=== PATIENT | male | born 1960 | race Two or more races ===

== ENCOUNTER 2025-03-15 15:52 | Emergency (ER) | payer MEDICAID, SELFPAY ==
[2025-03-15 16:14] VITALS: BP 125/74; PULSE 92; RESP 20; TEMP 36.8; O2SAT 97; BMI 33.5
--- NOTE | 2025-03-15 16:25 | XR_ITS ---
Examination: CT abdomen and pelvis without contrast. Coronal 3-D reconstructions. Sagittal 2-D reconstructions. Date and time of exam: March 15, 2025, 1716 hours INDICATIONS: Hematuria today, patient is anticoagulated CTDI: vol (mGy): 13.2 DLP: (mGycm): 785 Technique: Axial images of the abdomen have been obtained, 3 mm slice thickness Intravenous contrast material has not been administered. Low dose protocols were performed. One or more of the following dose reduction techniques were used; automated exposure control, adjustment of the mA and/or KV according to patient size, use of iterative reconstruction technique. Findings: Air distended colon interposed between the liver and the hemidiaphragm No liver lesion No gallstones Spleen is not enlarged No pancreatic or adrenal mass Multiple subcentimeter bilateral renal calculi Significant right hydronephrosis, 10 mm mid right ureteral calculus No bowel obstruction Prostatomegaly, transverse dimension 5.4 cm Urinary bladder wall thickening up to 7 mm Large fat-containing right inguinal hernia No pericecal inflammatory change Advanced narrowing hip joints Severe osteopenia IMPRESSION: Colonic ileus Bilateral subcentimeter renal calculi Significant right hydronephrosis, 10 mm mid right ureteral calculus Moderate prostatomegaly Mild urinary bladder wall thickening, consider cystitis, outflow tract obstruction secondary to the prostatomegaly
--- NOTE | 2025-03-15 16:26 | PD.EDRME ---
Rapid Medical Screening Exam RME Arrival date/time: 03/15/25 15:52 64-year-old male presents to the emergency department today for complaints of hematuria patient on Eliquis Chief Complaint: General Adult/Misc Complain Vital signs: Vital Signs Temperature 98.2 F 03/15/25 16:14 Pulse Rate 92 03/15/25 16:14 Respiratory Rate 20 03/15/25 16:14 Blood Pressure 125/74 03/15/25 16:14 Pulse Oximetry (%) 97 03/15/25 16:14 Oxygen Delivery Method Room Air 03/15/25 16:14 Vital signs reviewed by provider: Yes Exam: On exam well-appearing does not appear appear ill or toxic in no acute distress Clinical Impression: Lab work and imaging ordered
[2025-03-15 18:07] LABS: Basophils # (Auto) 0.1 Thou/mm3 (0.0-0.2); Basophils % (Auto) 1 % (0-2.5); Eosinophils # (Auto) 0.4 Thou/mm3 (0.0-0.5); Eosinophils % (Auto) 5 % (0-10); Hematocrit 48.4 % (41.0-53.0); Hemoglobin 15.5 g/dL (13.5-16.0); Immature Granulocytes Auto 0.03 Thou/mm3 (0.00-0.00); Lymphocytes # (Auto) 2.0 Thou/mm3 (1.0-4.8); Lymphocytes % (Auto) 22 % (10-50); Mean Corpuscular HGB Conc 32.0 g/dl (31.0-37.0); Mean Corpuscular Hemoglobin 29.8 pg (25.0-35.0); Mean Corpuscular Volume 93 fL (80-100); Monocytes # (Auto) 1.0 Thou/mm3 (0.0-0.8); Monocytes % (Auto) 11 % (0-12); Neutrophils # (Auto) 5.4 Thou/mm3 (1.8-7.7); Neutrophils % (Auto) 61 % (37-80); Nucleated Red Blood Cell # 0.00 Thou/mm3 (0.00-0.00); Nucleated Red Blood Cell % 0 /100 WBC (0); Platelet Count 269 Thou/mm3 (140-440); RDW Standard Deviation 49.8 fL (35.1-43.9); Red Blood Count 5.21 Miln/mm3 (4.50-5.90); White Blood Count 8.8 Thou/mm3 (3.8-10.6)
[2025-03-15 18:38] LABS: INR 1.0 (0.9-1.3); Partial Thromboplastin Time 32.9 Seconds (22.0-36.0); Prothrombin Time 10.4 Seconds (9.0-12.2)
[2025-03-15 18:40] LABS: Alanine Aminotransferase 9 U/L (10-49); Albumin, Serum 4.9 gm/dL (3.4-4.8); Albumin/Globulin Ratio 1.5 (1.2-2.2); Alkaline Phosphatase 95 U/L (46-116); Anion Gap 13 (7-16); Aspartate Amino Transferase 10 U/L (0-34); BUN/Creatinine Ratio 12 Ratio (12-20); Bilirubin,Total 0.2 mg/dL (0.3-1.2); Blood Urea Nitrogen 12 mg/dL (9-23); Calcium 10.1 mg/dL (8.3-10.6); Calcium (Corrected) 10.1 mg/dL (8.5-10.1); Carbon Dioxide 21.6 mMol/L (20.0-31.0); Chloride 105 mMol/L (98-107); Creatinine (Component) 1.0 mg/dL (0.6-1.3); Estimated Creatinine Clearance 55.5 mL/min (>60); Globulin 3.3 gm/dL (2.3-3.5); Glucose 116 mg/dL (74-106); Lipase 39 U/L (12-53); Osmolality,Calculated 280 (275-295); Potassium 4.3 mMol/L (3.4-5.1); Sodium 140 mMol/L (136-145); Total Protein 8.2 gm/dL (5.7-8.2); eGFR > 60 See Note
[2025-03-15 19:34] LABS: Bilirubin,Direct < 0.1 mg/dL (0.0-0.3); LDH (Lactate Dehydrogenase) 161 U/L (120-246)
[2025-03-15 20:17] VITALS: BP 158/80; PULSE 103; RESP 24; TEMP 36.5; O2SAT 99
[2025-03-15] MEDS: KETAMINE 50 MG/ML VIAL 10 ML IM (20:18)
--- NOTE | 2025-03-15 21:21 | EDNOTE_ITS ---
ED General RME/HPI General Chief complaint: General Adult/Misc Complain Stated complaint: BLEEDING FROM PENIS, ON ELIQUIS Time Seen by Provider: 03/15/25 17:54 Arrival date/time: 03/15/25 15:52 RME / HPI RME / HPI narrative: A 64-year-old male with developmental delay who is wheelchair-bound, with history of CVA, seizure disorder, BPH, on ELIQUIS for possible A-fib vs. DVT, and other unknown medical history who was brought by his cousin (current animal care service worker) for blood in urine. He was seen by his PCP at [facility] [facility] for the same complaint and was advised to come to the ED. Per family at bedside, he has had several days of decreased urine output which has steadily became darker and had an episode of bright red urine earlier today. He is able to communicate through gesture and yes and no, however he's had no complaint over the last few days except for pointing to his right flank. In the ED he was afebrile, hypertensive with BP 158/80, tachycardic 103, satting well on room air. CBC was unremarkable including hemoglobin of 15.5, PLT 269 and no leukocytosis. Coag panel was also normal. CHEM panel showed a GFR of 55.5, creatinine 1.1. Normal lactic acid, liver function, anion gap and electrolytes. He has been able to void since admission. We have placed a Dupont for UA unsuccessful with some bloody output but no urine. Bladder scan showed about 300 cc in the bladder and will reattempt with a coud?. CT abdomen showed severe right hydronephrosis secondary to 10 mm mid right ureteral calculus in addition to moderate prostamegaly and mild urinary bladder wall thickening suggestive of outflow tract obstruction. There is also colonic ileus on CT. Transfer is required for urgent urology evaluation and intervention due to obstructive uropathy from a 10 mm mid?right ureteral stone with severe right hydronephrosis, associated gross hematuria, and outflow obstruction from prostatomegaly, with concern for need for urologic decompression (ureteral stent vs nephrostomy) not available at the current facility. Medications: ELIQUIS 5 mg BID, KEPPRA 1000 mg BID, FLOMAX 0.4 mg daily, TOPIRAMATE 100 mg BID, JANUMET, LIPITOR, AZO cranberry. Exam: On exam well-appearing does not appear appear ill or toxic in no acute distress Impression: Lab work and imaging ordered Related Data Home Medications ?Medication ?Instructions ?Recorded ?Confirmed levetiracetam 1,000 mg tablet 1,000 mg PO BID #0 tabs 10/04/13 03/15/18 (Keppra) topiramate 100 mg tablet (Topamax) 100 mg PO BID #0 ta bs 10/04/13 03/15/18 docusate sodium 250 mg capsule 1 cap PO BID Bowel Diso rder ##0 05/21/15 03/15/18 (DOK) metformin 500 mg tablet 850 mg PO BIDAC 03/15/18 (Glucophage) tamsulosin 0.4 mg capsule 0.4 mg PO QDAY 03/15/1802/15 Previous Rx's ?Medication ?Instructions ?Recorded apixaban 5 mg tablet (Eliquis) 5 mg PO BID #60 tabs azithromycin 250 mg tablet See Rx Instructions PO .COM PLEX #6 03/17/18 tabs Allergies Allergy/AdvReac Type Severity Reaction Status Date / Time NKA* Allergy Uncoded 03/15/25 15:54 Review of Systems Review of Systems Narrative Review of Systems: Unable to obtain accurate history. ED Exam Narrative Physical exam: GENERAL * Pleasant appearing male, no apparent distress. HEENT * NCAT.?FIORDALIZA. Oral mucosa is moist. Patent Nares NECK * Supple, nontender, no JVD. CHEST * RRR, no m/g/r * CTAB, no w/r/r, symmetrical expansion. ABDOMEN * Soft, flat, nontender. No guarding/rebound tenderness/masses. * Bowel sounds presents EXTREMITIES * No edema/cyanosis.? SKIN * Warm and dry, no jaundice/rashes. NEUROMUSCULAR * No lumbar or midline, no CVA, no paraspinal muscle spasm or tenderness. * Moves all 4 extremities well, with full ROM and good CSM. * TURNER x4, CN II-XII grossly intact. * No focal neurologic deficits. PSYCHIATRY * Normal mood and affect, cooperative, no SI or HI or hallucinations. Course Quality Measures none Orders Category Date Time Status Bladder Scan NEEDED Care 03/15/25 19:07 Active Dupont [Urinary Catheter] NOW Care 03/15/25 20:03 Active Referral - Cath Lab Tech Stat Cons 03/15/25 20:[address] abdomen pelvis wo con Stat Exams 03/15/25 16:25 Completed EKG (ED Only) Stat Exams 03/15/25 18:51 Stop Req Bilirubin,Direct Stat Lab 03/15/25 17:58 Completed CBC Stat Lab 03/15/25 17:58 Completed Comprehensive Metabolic Panel Stat Lab 03/15/25 17:58 Completed Haptoglobin* Stat Lab 03/15/25 17:50 Stop Req LDH (Lactate Dehydrogenase) Stat Lab 03/15/25 17:58 Completed Lipase Stat Lab 03/15/25 17:58 Completed PT [Prothrombin Time with INR] Stat Lab 03/15/25 17:58 Completed PTT [Partial Thromboplastin Time] Stat Lab 03/15/25 17:58 Completed Ketamine Inj Med 03/15/25 20:03 Discontinued 50 mg IM X1 ONE Morphine* Inj Med 03/15/25 18:50 Discontinued 2 mg IVP X1 PRN Ondansetron Inj [Zofran Inj] Med 03/15/25 18:50 Discontinued 4 mg IVP X1 ONE Vital Signs Vital signs: Vital Signs Temperature 98.2 F 03/15/25 16:14 Pulse Rate 92 03/15/25 16:14 Respiratory Rate 20 03/15/25 16:14 Blood Pressure 125/74 03/15/25 16:14 Pulse Oximetry (%) 97 03/15/25 16:14 Oxygen Delivery Method Room Air 03/15/25 16:14 Discharge Plan Plan Patient Disposition: Xfer Acute Care [facility] Facility Pt Being Transferred to: Other-Specify in comment Service Needed for Transfer: Urology Patient condition on transfer: Stable Prescriptions/Referrals Prescriptions/Med Rec: No Action topiramate [Topamax] 100 MG tablet 100 mg PO BID Qty: 0 levetiracetam [Keppra] 1,000 MG tablet 1,000 mg PO BID Qty: 0 docusate sodium [DOK] 250 MG capsule 1 cap PO BID Qty: 0 apixaban [Eliquis] 5 MG tablet 5 mg PO BID Qty: 60 0RF metformin [Glucophage] 500 MG tablet 850 mg PO BIDAC tamsulosin 0.4 mg Capsule 0.4 mg PO QDAY azithromycin 250 mg tablet See Rx Instructions .ROUTE .COMPLEX Qty: 6 0RF Rx Instructions: take 500 mg once daily for 3 days Referrals: No Primary/Family,Physician [Primary Care Provider] - In 1 week Problem List Clinical Impression: Hydronephrosis due to obstruction of ureter, Hydronephrosis due to obstruction of bladder Patient/Caregiver Discharge Instructions Print Language: Hong Konger Stand Alone Forms: Dania Award Info., Patient Portal Info Letter MDM Medication Administration(s) Medication Administration History Discontinued Medications Ketamine HCl (Ketamine 50 Mg/Ml Vial 10 Ml) 50 mg IM X1 ONE Stop: 03/15/25 20:04 Last Admin: 03/15/25 20:18 Dose: 50 mg Documented By: JOB Morphine Sulfate (Morphine Sulf Inj 4 Mg/Ml Vial) 2 mg IVP X1 PRN PRN Reason: severe abdominal pain Stop: 03/20/25 18:49 Ondansetron HCl (Ondansetron Inj 2 Mg/Ml Inj 2 Ml) 4 mg IVP X1 ONE; Protocol Stop: 03/15/25 18:51 Last Admin: 03/15/25 19:25 Dose: Not Given Documented By: JOB Non-Admin Reason: Cancelled by Provider
[2025-03-15 21:45] VITALS: BP 158/80; PULSE 84; RESP 25; TEMP 36.4; O2SAT 95
[2025-03-15] MEDS: SODIUM CHLORIDE 0.9% 1000 ML 1,000 ML 100 ML IV (22:20)
[2025-03-15 23:06] VITALS: BP 120/78; PULSE 84; RESP 22; TEMP 37; O2SAT 95
[2025-03-15] MEDS: levETIRAcetam INJ 100 MG/ML VIAL 5ML 1000 MG IVP (23:06)
--- NOTE | 2025-03-15 23:09 | XR_ITS ---
Examination: Abdomen AP single view Technique: AP portable supine abdomen, single view Exam date and time: March 15, 2025, 11:23 p.m. INDICATIONS: Urology clearance FINDINGS: Contrast in dilated right renal calyces and pelvis Abundant air and stool throughout the colon No free air IMPRESSION: Contrast in dilated right renal calyces and pelvis
[2025-03-15] MEDS: cefTRIAXone/D5w 1gm IV premix 1 GM/50 ML BAG IV (23:21)
--- NOTE | 2025-03-15 23:35 | PC.NURSE ---
Pt transferred to [facility] for a 10mm obstructing renal calculus. ED to ED MD Camargo. Report to [phone]
[2025-03-27 06:43] LABS: Haptoglobin* 244 mg/dL (43-212)
== END 2025-03-15 23:37 | disposition short-term general hospital (02) ==
PROVIDERS: Nurse Practitioner Primary Care; Emergency Provider Emergency Medicine
DX: N13.2 Hydronephrosis with renal and ureteral calculous obstruction (principal); K56.7 Ileus, unspecified; N32.89 Other specified disorders of bladder; Z75.1 Person awaiting admission to adequate facility elsewhere
CPT/HCPCS: 36415; 51702; 74018; 74176; 80053; 81001; 82248; 83010; 83615; 83690; 85025; 85610; 85730; 96372; 96374; 99285; A4314; J0696; J1953; J7030